=== PATIENT | male | born 1970 | race African-American/Black ===

== ENCOUNTER 2018-04-17 18:28 | Emergency (ER) | payer OTHER ==
[~2018-04-17] VITALS: Ht 177.8 cm; Wt 111.9 kg
[2018-04-17 18:31] VITALS: BP 163/103
[2018-04-17] MEDS ORDERED: ERYTHROMYC1 APPLICAT RIGHT EYE (20:46)
== END 2018-04-17 21:12 | disposition home or self-care (01) ==
LOC: EME 18:28
DX: T15.82XA Foreign body in other and multiple parts of external eye, left eye, initial encounter (principal); I10 Essential (primary) hypertension; Z88.0 Allergy status to penicillin
CPT/HCPCS: 99281; 99284